=== PATIENT | male | born 1955 | race Hispanic/Latino ===

== ENCOUNTER 2023-10-08 06:53 | Day surgery (SDC) | payer OTHER ==
[2023-09-25 15:45] LABS: Absolute Eosinophils 0.1 K/uL (0-0.5); Absolute Lymphocytes (CBC) 1.4 K/uL (0.7-4.9); Absolute Monocytes 0.5 K/uL (0.1-1.3); Absolute Neutrophil 4.4 K/uL (1.8-8.0); Basophils % 0.7 % (0-1.3); Eosinophils % 1.4 % (0-4.4); Hematocrit 34.5 % (39.6-49.0); Hemoglobin 11.8 g/dL (13.6-17.9); Lymphocytes % 21.5 % (15.3-44.8); MCH 27.7 pg (27.0-35.0); MCHC 34.1 g/dL (32.0-36.0); MPV 8.3 fL (7.6-11.3); Monocytes % 7.8 % (3.3-12.3); Neutrophils % 68.6 % (41.7-73.7); Platelets 247 thou/uL (152-406); RBC Red Blood Cell Count 4.26 M/uL (4.33-5.43); Red Cell Distribution Width 15.1 % (12.1-15.2)
--- NOTE | 2023-09-25 15:49 | RAD REPORT ---
EXAM DESCRIPTION: Rahul Feldman (2 Views)09/25/2023 3:23 pm CLINICAL HISTORY: pre-op for urolift hypertension COMPARISON: None FINDINGS: The lungs appear clear of acute infiltrate. The heart is normal size Old left rib fracture IMPRESSION: No acute abnormalities displayed
[2023-09-25 15:52] LABS: PT Prothrombin Time 12.3 SECONDS (9.5-12.5); Protime INR 1.12
--- NOTE | 2023-09-27 16:57 | EKG ---
Test Date: 2023-09-25 Test Time: 15:03:54 Brand Designer: LIDIA MEASUREMENT RESULTS: Intervals: Rate: 75 GA: 144 QRSD: 74 QT: 418 QTc: 466 [place]: P: 62 GA: 144 QRS: 36 T: 85 INTERPRETIVE STATEMENTS: Normal sinus rhythm Nonspecific ST and T wave abnormality Prolonged QT Abnormal ECG No previous ECG available for comparison Electronically Signed On 09-27-23 16:50:04 CDT by Colby West
[2023-10-08] MEDS: NA CHLORIDE 0.9% 1,000 ML ONE (07:10)
[2023-10-08] MEDS ORDERED: Ringers Lactate 0 ML IV ONE (07:12)
[2023-10-08] MEDS ORDERED: SUGAMMADEX SODIUM 200 MG/2 ML VIAL IV ONE (07:19)
[2023-10-08] MEDS ORDERED: SUCCINYLCHOLINE 20 MG/ML (10 ML) IV ONE (07:19)
[2023-10-08 07:42] VITALS: BP 147/78; TEMP 97.8; O2SAT 100
== END 2023-10-08 08:05 | disposition home or self-care (01) ==
LOC: OR 06:53
PROVIDERS: ATTEND Urology
DX: N40.1 Benign prostatic hyperplasia with lower urinary tract symptoms (principal); R33.9 Retention of urine, unspecified; Z53.09 Procedure and treatment not carried out because of other contraindication
CPT/HCPCS: 93005; 87088; 85025; 87086; 80048; 36415; 85610; 82947; 87077; 87186; 71046; J7030; J7120

== ENCOUNTER 2023-10-24 05:59 | Day surgery (SDC) | payer OTHER ==
[2023-10-24] MEDS: NA CHLORIDE 0.9% 1,000 ML ONE (06:30)
[2023-10-24] MEDS ORDERED: FENTANYL CITR 100 MCG/2 ML ONE (07:15)
[2023-10-24] MEDS ORDERED: propofoL 200 MG/20 ML VIAL IV ONE (07:15)
[2023-10-24] MEDS ORDERED: LIDOCAINE 1% MPF 5 ML VIAL ONE (07:16)
[2023-10-24] MEDS: CEFAZOLIN SODIUM 1 GM/VIAL ONE (07:53)
[2023-10-24] MEDS ORDERED: EPHEDRINE SULF 50 MG/ML VIAL ONE (08:06)
[2023-10-24] MEDS ORDERED: LABETALOL HCL 100 MG/20 ML ONE (08:51)
[2023-10-24] MEDS: LABETALOL 20 MG/4ML SYRINGE IV ONE ×2 (08:53→09:20)
[2023-10-24 08:57] VITALS: O2SAT 100
[2023-10-24] MEDS ORDERED: CODEINE 30MG/APAP 300MG TAB PO PRN (09:11)
[2023-10-24] MEDS ORDERED: PHENAZOPYRIDINE 100MG TAB PO ONE (09:11)
[2023-10-24 10:16] VITALS: BP 146/68; TEMP 97
--- NOTE | 2023-10-24 12:29 | OP ---
Surgeon: GABRIELLA BRADLEY Preoperative Diagnoses: 1.Urinary retention. 2.Benign prostatic hypertrophy with obstruction. Postoperative Diagnoses: 1.Urinary retention. 2.Benign prostatic hypertrophy with obstruction. 3.Foreign body in bladder. Principal Procedures: 1.Prostatic urethral lift/UroLift with 8 implants used, but 6 implants successfully placed with 1 pa rtial pull-through and 1 complete pull-through. 2.Cystoscopy with foreign body removal from bladder. Indication For Procedure: Mr. Yung presented [facility] with obstructive urinary symptoms a nd incontinence and was found to have large volume retention. He underwent catheter placement and moore bsequent evaluation before presenting today for definitive management. He was given a prescription f or cefpodoxime to take in advance of today's procedure. Procedure In Detail: The patient was consented in the preoperative holding area before being transfe rred to the operative suite where general anesthesia was induced. He was given Ancef 1 g IV antimicr obial prophylaxis, and pneumo boots were provided for DVT prophylaxis. He was placed in the lithotom y position, padded and secured to the table appropriately, and his genitalia were prepped with Hibicl ens before being draped in standard fashion. The case was begun after his urethral Gallego catheter bansal d been removed prior to him being prepped and draped, with the 20-Guyanese UroLift sheath and visual ob turator used to traverse the urethra and into the bladder with ease. I decompressed the bladder of f luid and any remaining urine and then surveyed it in its entirety, irrigating it in the process, give n the presence of the prior catheter. I discovered a foreign body, piece of plastic, which appeared to be a ruptured catheter balloon fragment, which was floating in his bladder. As a result, I had to switch to a 22-Guyanese rigid cystoscope which was placed via his urethra into his bladder, and utiliz ed a grasper to grasp and remove the plastic fragment intact. I then replaced the UroLift sheath and visual obturator into his bladder and switched it for the first UroLift implant delivery device and an implant. I then targeted the patient's bladder neck and about 1.5 to 2 cm distal to the bladder n mary jane at around the 3 o'clock position, I angled the scope laterally 15 degrees and pulled the trigger once delivering the needle through the substance of the prostate. I then angled the scope an additio nal 15 degrees laterally to ensure compression of the tissue and that the needle was delivered all th e way to the capsular surface. I then pulled the trigger a second time deploying the capsular tab an d partially retracting the needle. A third pull of the trigger then completely retracted the needle and tensioned the suture. I then advanced the scope back toward the midline and 2 to 3 mm toward the bladder neck until the white line of the monofilament was centered in the delivery Rogers. At this poi nt, I pulled the trigger a fourth time, tailoring the suture and applying the urethral end piece. Th is did nicely invaginate and pulled the bladder neck tissues laterally with a beautiful rim of tissue between the implant and the bladder neck entry opening. As a result, I advanced the scope back into the bladder and switched the UroLift delivery device for a second implant. I then targeted the ary ent's right side lateral lobar hypertrophy at the bladder neck 1.5 to 2 cm distal to the bladder neck opening and again placed a similar implant on the right side in similar fashion to that on the left. I then performed the same procedure, placing an additional implant at the patient's left apex at th e level of the verumontanum and then at the right apex at the level of the verumontanum; however, on the right side, the implant did not seem to invaginate well into the tissue suggestive of the possibi lity of being a partial pulled through. It did hold the tissue laterally; so I left it in place whil e I then surveyed the channel and the residual obstructing tissue in the mid zone of the prostate. A t this point, I placed an additional implant in the left mid zone of the prostate and a seventh impla nt in the right mid zone of the prostate. However, similar to the attempted implant placement in the right apex, the right mid gland implant did actually completely pulled through and thus I had to swi tch to a cystoscope again in order to remove the implant along with its capsular tab intact. Both th e urethral end piece, the filament, and the capsular tab were all brought out with that removal. So, I went back and placed a seventh implant in the mid zone of the prostate and then reassess the apica l implant on the right and decided that it likely was not well positioned. As a result, I switched t o a cystoscope again and used a grasper to remove that implant and it did come out with the capsular tab as well as the urethral end piece. So, an eighth and final implant was used to replace the right apical verumontanum implant successfully. After this was done, the channel was beautifully opened f rom the verumontanum all the way into the bladder with the bladder decompressed and there was minimal hematuria. As a result, I placed an 18-Guyanese Gallego catheter via his urethra into his bladder with ease and then I irrigated the bladder to ensure no clots were present within. With no clots observed , and also with the irrigant fluid clear, the catheter was connected to a leg bag. He was then taken out of the lithotomy position, awakened from general anesthesia, transferred to a stretcher, and the n transferred to the recovery room in good condition. Complications: None. Discharge Disposition: He will be given a voiding trial in the recovery as long his urine is not ter ribly bloody. If he is unsuccessful at the voiding trial today, we will instead have him wait until Saturday to complete another active voiding trial in the office. I have given him a prescription for A ugmentin to continue as antimicrobial prophylaxis until at least 24 hours after the catheter has been removed, whether that is today or on Saturday. Subsequent followup should be established with me in a bout a month, a routine UroLift followup. If the patient is unsuccessful at voiding on Saturday, the n ext step would involve urodynamics. 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 RENZO/MODL Voice ID: [id number] Report ID: [id number]
== END 2023-10-24 11:16 | disposition home or self-care (01) ==
LOC: OR 05:59
PROVIDERS: ATTEND Urology
PROC: 0T7D8DZ Dilation of Urethra with Intraluminal Device, Via Natural or Artificial Opening Endoscopic (ICD-10-PCS; 2023-10-24)
PROC: 0TCB8ZZ Extirpation of Matter from Bladder, Via Natural or Artificial Opening Endoscopic (ICD-10-PCS; principal; 2023-10-24 07:30)
DX: R33.9 Retention of urine, unspecified (principal); N40.1 Benign prostatic hyperplasia with lower urinary tract symptoms; N13.8 Other obstructive and reflux uropathy; T19.1XXA Foreign body in bladder, initial encounter
CPT/HCPCS: 82947; J0690; J2001; J2704; J3010; J7030